=== PATIENT | male | born 1970 | race Caucasian/White ===

== ENCOUNTER 2016-10-30 17:49 | Emergency (ER) | payer OTHER ==
[2016-10-30 18:40] LABS: BASOPHIL# 0.1 X 10^3uL (0.0-0.1); EOSINOPHILS 1.7 % (0.0-6.0); EOSINOPHILS# 0.1 X 10^3uL (0.0-0.4); HEMATOCRIT 47.5 % (42.0-54.0); HEMOGLOBIN 16.3 g/dL (14.0-18.0); LYMPHOCYTES 16.2 % (20.0-40.0); LYMPHOCYTES# 1.2 X 10^3uL (0.8-3.8); MEAN CELL VOLUME 81.9 fL (80.0-100.0); MEAN CORPUS. HGB CONCENTRATION 34.2 g/dL (32.0-36.0); MEAN PLATELET VOLUME 10.3 fL (7.4-10.4); MONOCYTES 6.9 % (2.0-10.0); MONOCYTES# 0.5 X 10^3uL (0.2-1.0); NEUTROPHILS 74.2 % (54.0-75.0); NEUTROPHILS# 5.4 X 10^3uL (2.6-6.7); PLATELET COUNT 304 X 10^3uL (130-440); RED CELL DISTRIBUTION WIDTH 13.1 % (11.5-14.5); WHITE BLOOD COUNT 7.4 X 10^3uL (3.9-10.7)
--- NOTE | 2016-10-30 18:43 | CT REPORT ---
HISTORY: Right-sided flank pain. COMPARISON: None. TECHNIQUE: This examination was performed using automated exposure control, adjustment of mA or kV according to patient size, and/or use of iterative reconstruction technique. Axial contiguous images of the abdome n and pelvis were obtained without oral or IV contrast, coronal reformat images also performed. FINDINGS: The visualized lung parenchyma and cardiac structures are unremarkable. The right and left kidneys are unremarkable. There is no hydronephrosis or hydroureter. There is no c alculus. The liver is incompletely imaged, but unremarkable. The gallbladder is unremarkable, there is no ch olelithiasis or pericholecystic fluid. The spleen is only partially imaged, but unremarkable. There is no pancreatic mass or ductal dilatation. The adrenal glands are unremarkable. The stomach, small bowel and large bowel are unremarkable. The appendix is normal. There is extensi ve edema surrounding the mesenteric root and pancreas. Vascular structures of the abdomen and pelvis are unremarkable. No pathologic adenopathy is identified. There is no bone lesion. IMPRESSION: Inflammatory changes surrounding the pancreas and root of the mesentery concerning for pancreatitis, less likely duodenitis or mesenteritis. Final Electronic Signature: This report was electronically signed by Craig Schaefer MD on 10/30/2016 6:41 PM. noa /
[2016-10-30 18:49] LABS: A/G RATIO 1.5; ALBUMIN 4.7 g/dL (3.5-5.0); ALKALINE PHOSPHATASE 61 U/L (38-126); ALT 52 U/L (21-72); AST 27 U/L (17-59); BILIRUBIN, TOTAL 0.5 mg/dL (0.2-1.3); BLOOD UREA NITROGEN 11 mg/dL (9-20); CALCIUM 10.1 mg/dL (8.4-10.2); CHLORIDE 105 mmol/L (98-107); EST GLOMERULAR FILTRATION RATE > 60 mL/min; GLUCOSE 105 mg/dL (70-100); POTASSIUM 3.6 mmol/L (3.5-5.1); SODIUM 145 mmol/L (137-145); TOTAL PROTEIN 7.9 g/dL (6.3-8.2); URIC ACID 4.9 mg/dL (3.5-8.5)
[2016-10-30 19:53] LABS: LIPASE 62 U/L (23-300)
--- NOTE | 2016-10-30 20:41 | ER NURSING DOCUMENTATION ---
Nurse's Notes [facility] Name:Micha Robins Jr Age:45 yrs Sex:Male :1970 Arrival Date:10/30/2016 Time:17:49 BedTrauma-B Private MD: Diagnosis:Abdominal Pain, Right Lower Quadrant Presentation: 10/30 18:18 Presenting complaint: Patient states: Right lower quadrant pain. Transition of care: lp Home. 18:18 Acuity: LIANE 3 lp 18:18 Method Of Arrival: Private Vehicle lp Triage Assessment: 18:19 General: Appears in no apparent distress, Behavior is appropriate for age. Pain: lp Complains of pain in right lower quadrant. Musculoskeletal: Circulation, motion, and sensation intact Capillary refill < 3 seconds. Historical: - Allergies: No known drug Allergies; - Home Meds: 1. None - PMHx: None; - PSHx: Tonsillectomy; Oral surgery; - Tetanus: < 10 years. - Ebola Screening: : Patient negative for fever greater than or equal to 101.5 degrees Fahrenheit, and additional compatible Ebola Virus Disease symptoms. Patient denies exposure to infectious person. Patient denies travel to an Ebola-affected area in the 21 days before illness onset. . - Immunization history: Pneumococcal vaccine is up to date, Flu Vaccine < 1 year. - Social history: Smoking status: Patient states former smoker of tobacco. Screenin:30 Infectious Disease Risk None. Abuse screen: Denies threats or abuse. Denies injuries lp from another. Nutritional screening: No deficits noted. Assessment: 18:29 Neuro: No deficits noted. GI: Abdomen is non- distended Abdomen is tender to palpation lp in right lower quadrant Reports lower abdominal pain, nausea. Vital Signs: 18:29 BP 134 / 82; Pulse 63; Resp 16; Temp 99.0(TE); Pulse Ox 95% on R/A; Weight 76.2 kg; lp Height 5 ft. 11 in. (180.34 cm); Pain 5/10; 20:38 BP 118 / 85; Pulse 79; Resp 18; Temp 98; Pulse Ox 95% ; Pain 0/10; bw2 18:29 Body Mass Index 23.43 (76.20 kg, 180.34 cm) lp ED Course: 17:51 Patient arrived in ED. ama 17:53 Benny Kruse MD is Attending Physician. tl1 18:18 Roseanna Ariza, RN is Primary Nurse. lp 18:18 Triage completed. lp 18:[address] Kruse notified. lp 20:35 Attending Physician role handed off by Benny Kruse MD 20:35 Jatin Skelton MD is Attending Physician. 20:39 Valuables Remains with patient. bw2 Administered Medications: No medications were administered Point of Care Testing: Urine Dip: 19:59 pH: 5.5; ; Specific [place]: 1.030; Ketones: Negative; Glucose: Negative; Protein: mv Negative; Leukocytes: Negative; Nitrite: Negative ; Blood: Negative; Bilirubin: Negative ; Urobilinogen: Normal Outcome: 20:35 Discharge ordered by . 20:38 Discharged to home ambulatory. 2 20:38 Condition: good 20:38 Discharge Assessment: Patient awake, alert and oriented x 3. No cognitive and/or functional deficits noted. Patient verbalized understanding of disposition instructions. 20:38 Discharge instructions given to patient, Instructed on discharge instructions, follow up and referral plans. Demonstrated understanding of instructions. 20:39 Patient left the ED. [facility] 11/01 14:14 Discharge F/U Call: Unable to reach: left voicemail: Signatures: Olga Gilbert RN RN lc Pavlish, Lena, Jatin Lizarraga RN, lp, MD MD jm Terriere, Tracy tt Averdick, Andrew, Reg [facility] Benny Kee MD MD tl1 bri becker Beth bw2
--- NOTE | 2016-10-30 20:41 | ER PHYSICIAN DOCUMENTATION ---
Physician Documentation [facility] Name:Micha Robins Jr Age:45 yrs Sex:Male :1970 Arrival Date:10/30/2016 Time:17:49 BedTrauma-B Private MD: Jatin Nino Disposition: 11/01 13:16 Chart complete. tl1 Disposition: 10/30/16 20:35 Discharged to Home/Self Care. Impression: Abdominal Pain, Right Lower Quadrant. - Condition is Good. - Discharge Instructions: ABDOMINAL PAIN, Unkown Cause, (Male). - Medical Reconciliation form form. - Follow up: Private Physician; When: As needed; Reason: Continuance of care. - Problem is new. - Symptoms have improved. HPI: 10/30 17:54 This 45 yrs old Male presents to ER with complaints of Flank Pain - RIGHT, tl1 Back Pain. 18:00 The patient complains of pain in the right mid back. The pain radiates to the right tl1 inguinal area. Onset: The symptom(s)/episode began/occurred suddenly, yesterday. Modifying factors: The symptoms are alleviated by nothing. the symptoms are aggravated by nothing. Associated signs and symptoms: Pertinent positives: nausea, Pertinent negatives: diarrhea, dysuria, fever, urinary frequency, hematuria. Severity of pain: At its worst the pain was moderate in the emergency department the pain is unchanged. The patient has not experienced similar symptoms in the past. Historical: - Allergies: No known drug Allergies; - Home Meds: 1. None - PMHx: None; - PSHx: Tonsillectomy; Oral surgery; - Tetanus: < 10 years. - Ebola Screening: : Patient negative for fever greater than or equal to 101.5 degrees Fahrenheit, and additional compatible Ebola Virus Disease symptoms. Patient denies exposure to infectious person. Patient denies travel to an Ebola-affected area in the 21 days before illness onset. . - Immunization history: Pneumococcal vaccine is up to date, Flu Vaccine < 1 year. - Social history: Smoking status: Patient states former smoker of tobacco. ROS: 18:00 Abdomen/GI: Positive for abdominal pain, nausea. tl1 18:00 Back: Positive for radiated pain. 18:00 : Positive for flank pain, Negative for urinary symptoms, urinary frequency, hematuria, burning with urination, difficulty urinating, bladder incontinence, foul smelling urine. 18:00 All other systems are negative. Exam: 18:00 Constitutional: The patient appears alert, awake, non-toxic, well developed, well tl1 hydrated, well groomed, well nourished, uncomfortable. 18:00 Head/face: Exam is negative for acute changes. 18:00 Eyes: Periorbital structures: no acute changes. 18:00 ENT: Exam is negative for acute changes. 18:00 Neck: Exam negative for acute changes. 18:00 Cardiovascular: Rate: normal, Rhythm: regular, Heart sounds: normal. 18:00 Respiratory: the patient does not display signs of respiratory distress. 18:00 Abdomen/GI: Inspection: abdomen appears normal, Bowel sounds: active, Palpation: soft, mild abdominal tenderness, in the posterior aspect of right lateral abdomen and right lower quadrant. 18:00 Back: CVA tenderness, that is mild, is noted on the right. 18:00 Musculoskeletal/extremity: Exam is negative for acute changes. 18:00 Skin: Exam negative for acute changes. 18:00 Neuro: Exam negative for acute changes. Vital Signs: 18:29 BP 134 / 82; Pulse 63; Resp 16; Temp 99.0(TE); Pulse Ox 95% on R/A; Weight 76.2 kg; lp Height 5 ft. 11 in. (180.34 cm); Pain 5/10; 20:38 BP 118 / 85; Pulse 79; Resp 18; Temp 98; Pulse Ox 95% ; Pain 0/10; bw2 18:29 Body Mass Index 23.43 (76.20 kg, 180.34 cm) lp MDM: 17:53 Patient medically screened. tl1 17:54 Patient medically screened. tl1 19:30 Data reviewed: vital signs, nurses notes, and as a result, I will turn over care of tl1 this patient to Dr Jatin Skelton at change of shift. Please see his addendum for any further details.. Data interpreted: radiation monitor: Pulse oximetry:. 10/30 18:48 Order name: CBC AUTO DIF, MDIF/RMOR IF IND; Complete Time: 13:03 EDMS 11/01 13:01 Interpretation: WHITE BLOOD COUNT 7.4; HEMOGLOBIN 16.3; HEMATOCRIT 47.5; PLATELET COUNT tl1 304. 10/30 18:53 Order name: COMPREHENSIVE METABOLIC PANEL; Complete Time: 13:03 EDMS 11/01 13:01 Interpretation: Normal. tl1 10/30 18:53 Order name: URIC ACID; Complete Time: 13:03 EDMS 11/01 13:01 Interpretation: Normal: URIC ACID 4.9. tl1 10/30 19:56 Order name: LIPASE EDMS 10/30 18:44 Order name: CAT SCAN; A[place] [id number]; Complete Time: 13:18 EDMS 11/01 13:18 Interpretation: see radiologist report. Inflammatory changes aroung the pancreas and tl1 root of the mesentery. Dispensed Medications: No medications were administered Point of Care Testing: Urine Dip: 19:59 pH: 5.5; ; Specific [place]: 1.030; Ketones: Negative; Glucose: Negative; Protein: mv Negative; Leukocytes: Negative; Nitrite: Negative ; Blood: Negative; Bilirubin: Negative ; Urobilinogen: Normal Signatures: Roseanna Ariza RN RN lp Meyer, John, MD MD jm Leigh, Tom, MD MD [facility] Angie Sanz [facility]
== END 2016-10-30 20:40 | disposition home or self-care (01) ==
LOC: ER 17:49
DX: R10.31 Right lower quadrant pain (principal); R11.0 Nausea
CPT/HCPCS: 74176; 80053; 83690; 84550; 85025; 99282